=== PATIENT | male | born 1950 | race Caucasian/White ===

== ENCOUNTER 2019-04-13 12:32 | Emergency (ER) | payer MEDICARE ==
[~2019-04-13] VITALS: Ht 182.9 cm; Wt 73.0 kg
[2019-04-13 12:32] VITALS: BP 127/79
[~2019-04-13 12:32] MED LIST: ALPR-624 PO; ATOR20TA PO; LOSA100T57 PO; OMEP-84 PO
[2019-04-13] MEDS ORDERED: proparacaine 0.5% ophthalmic drops 15ml EACHEYE ONE (12:40)
[2019-04-13] MEDS ORDERED: VIG0.5OS LEFTEYE (13:18)
[2019-04-13] MEDS ORDERED: ACET-3067 PO (13:18)
== END 2019-04-13 13:45 | disposition home or self-care (01) ==
LOC: ER 12:32
DX: T15.92XA Foreign body on external eye, part unspecified, left eye, initial encounter (principal); E78.00 Pure hypercholesterolemia, unspecified; I10 Essential (primary) hypertension; K21.9 Gastro-esophageal reflux disease without esophagitis; F41.9 Anxiety disorder, unspecified; F12.90 Cannabis use, unspecified, uncomplicated; Z79.899 Other long term (current) drug therapy; X58.XXXA Exposure to other specified factors, initial encounter; Y93.89 Activity, other specified; Y92.89 Other specified places as the place of occurrence of the external cause; Y99.8 Other external cause status
CPT/HCPCS: 65205; 99284

== ENCOUNTER 2023-10-10 11:44 | Day surgery (SDC) | payer OTHER ==
[2023-10-06 12:09] LABS: BASOPHILS # (AUTO) 0.1 X10'3 (0-0.2); BASOPHILS % (AUTO) 1.1 % (0-1); EOSINOPHILS # (AUTO) 0.4 X10'3 (0-0.9); EOSINOPHILS % (AUTO) 7.7 % (0-6); HEMATOCRIT 41.4 % (42.0-52.0); HEMOGLOBIN 13.5 g/dl (14.0-17.9); LYMPHOCYTES # (AUTO) 1.2 X10'3 (1.1-4.8); LYMPHOCYTES % (AUTO) 20.2 % (21-51); MEAN CORPUSCULAR HEMOGLOBIN 29.1 PG (27.0-31.0); MEAN CORPUSCULAR HGB CONC 32.7 g/dL (33.0-36.5); MEAN CORPUSCULAR VOLUME 89.1 FL (78-98); MEAN PLATELET VOLUME 7.2 FL (7.4-10.4); MONOCYTES # (AUTO) 0.5 X10'3 (0-0.9); MONOCYTES % (AUTO) 7.9 % (2-12); NEUTROPHILS # (AUTO) 3.7 X10'3 (1.8-7.7); NEUTROPHILS % (AUTO) 63.1 % (42-75); PLATELET COUNT 350 X10'3 (140-440); RED BLOOD COUNT 4.64 X10'6 (4.70-6.10); RED CELL DISTRIBUTION WIDTH 16.6 % (11.5-14.5); WHITE BLOOD COUNT 5.8 X10'3 (4.5-11.0)
[2023-10-06 12:24] LABS: APTT 29 SECONDS (22-32); PROTHROMBIN TIME 10.5 SECONDS (9.0-12.0)
[2023-10-06 12:29] LABS: ALBUMIN 3.9 G/DL (3.4-5.0); ANION GAP 9 (8-16); BLOOD UREA NITROGEN 16 MG/DL (7-18); BUN/CREATININE RATIO 13.4 (10.0-20.0); CALCIUM 10.1 MG/DL (8.5-10.1); CHLORIDE 101 MMOL/L (99-107); CHOLESTEROL 182 MG/DL (0-200); CREATININE 1.19 MG/DL (0.60-1.10); GLUCOSE 113 MG/DL (70-104); HDL CHOLESTEROL 91 MG/DL (35-60); LDL CHOLESTEROL 71 MG/DL (50-100); POTASSIUM 4.1 MMOL/L (3.5-5.1); SODIUM 137 MMOL/L (135-145); TOTAL CARBON DIOXIDE 27.2 MMOL/L (24-32); TRIGLYCERIDES 88 MG/DL (20-135); eGFR 60 ML/MIN
[~2023-10-10] VITALS: Ht 182.9 cm; Wt 68.9 kg
[2023-10-10] VITALS (8 sets, daily range): BP systolic 120–137; BP diastolic 72–85; PULSE 70–76; RESP 16; TEMP 97.6; O2SAT 95–98
[~2023-10-10 11:44] MED LIST changes: -LOSA100T57 PO; +LOSA100T58 PO
[2023-10-10] MEDS ORDERED: ASPI-611 PO (12:31)
[2023-10-10] MEDS ORDERED: DULO30CA52 PO (12:31)
[2023-10-10] MEDS ORDERED: AMLO10TA13 PO (12:31)
[2023-10-10] MEDS ORDERED: OMEP20TA43 PO (12:31)
[2023-10-10] MEDS: diphenhydrAMINE 25mg capsule PO PRN (13:09)
[2023-10-10] MEDS: LORazepam 0.5 MG tablet PO PRN (13:09)
[2023-10-10] MEDS: normal saline 1,000 ML IV SCH (13:12)
[2023-10-10] MEDS ORDERED: midazolam 1 mg/ML 2ml injection ONE (15:08)
[2023-10-10] MEDS ORDERED: LIDOcaine 1% (10mg/ml) 2ml vial ONE (15:08)
[2023-10-10] MEDS ORDERED: heparin 1,000unit/ml 10ml vial 10 ML ONE (15:08)
[2023-10-10] MEDS ORDERED: verapamil 2.5 mg/ml inj IV ONE (15:08)
[2023-10-10] MEDS ORDERED: fentaNYL/PF 50MCG/1 ML 2ML syringe ONE (15:08)
[2023-10-10] MEDS ORDERED: iohexol 350MG/ML 100ml bottle IV ONE (15:08)
[2023-10-10] MEDS ORDERED: nitroGLYCERIN 500mcg/5mL D5W 5 ML IV ONE (15:09)
[2023-10-10] MEDS ORDERED: HYDROcodone/acetaminophen 10/325mg tab PO PRN (16:15)
[2023-10-10] MEDS ORDERED: HYDROcodone/acetaminophen 5mg/325mg tablet PO PRN (16:15)
== END 2023-10-10 17:50 | disposition home or self-care (01) ==
LOC: SSTAY O 11:44
PROVIDERS: ATTEND Student in an Organized Health Care Education/Training Program
DX: R94.39 Abnormal result of other cardiovascular function study (principal); I25.110 Atherosclerotic heart disease of native coronary artery with unstable angina pectoris; I10 Essential (primary) hypertension; E78.00 Pure hypercholesterolemia, unspecified; F12.90 Cannabis use, unspecified, uncomplicated; Z79.82 Long term (current) use of aspirin; Z79.899 Other long term (current) drug therapy
CPT/HCPCS: 36415; 80048; 80061; 85025; 85610; 85730; 93005; 93458; 99152; J1644; J2250; J3010; J3490; J7030; Q0163; Q9967; 99153; A6258; A6402; C1894